=== PATIENT | male | born 1990 | race Caucasian/White ===

== ENCOUNTER 2017-02-14 16:03 | Emergency (ER) | payer OTHER ==
[~2017-02-14] VITALS: Ht 188 cm; Wt 82.0 kg
[2017-02-14 16:07] VITALS: TEMP 36.6; Ht 188 cm; Wt 82.0 kg
[2017-02-14] MEDS ORDERED: TRAZ1TAB52 PO (16:19)
[2017-02-14] MEDS ORDERED: IBUP-1450 PO (16:19)
[2017-02-14] MEDS ORDERED: OXYCODONE/ACETAMINOPHEN 5-325 TAB PO STA (16:25)
--- NOTE | 2017-02-14 16:58 | DIAGNOSTIC IMAGING REPORT ---
LEFT TIBIA AND FIBULA 2 VIEWS CLINICAL HISTORY: Left leg injury. FINDINGS: AP and lateral views of the left tibia and fibula are obtained. No prior studies are available for comparison at the time of dictation. The skeletal structures are well mineralized. No fracture is seen. The knee and ankle joints are grossly maintained. Soft tissue edema is present in the distal calf and around the ankle, greatest laterally. IMPRESSION: 1. No left tibial or fibular fracture is identified. 2. Marked soft tissue edema is present in the distal calf and around the ankle. Electronically signed by: Vito Green M.D. 02/14/2017 4:57 PM Dictated Date/Time: 02/14/2017 4:55 PM
--- NOTE | 2017-02-14 16:59 | DIAGNOSTIC IMAGING REPORT ---
LEFT FOOT 3 VIEWS CLINICAL HISTORY: Inversion injury. FINDINGS: 3 views of the left foot are obtained. No prior studies are available for comparison at the time of dictation. The skeletal structures are well mineralized. No fracture is seen. The joint spaces of the foot are well-maintained. There is an ankle joint effusion, with soft tissue edema present around the ankle and throughout the foot. IMPRESSION: Soft tissue swelling with no radiographic evidence of fracture in the left foot. Electronically signed by: Vito Green M.D. 02/14/2017 4:58 PM Dictated Date/Time: 02/14/2017 4:57 PM
--- NOTE | 2017-02-14 17:04 | EMERGENCY ROOM VISIT NOTE ---
History First contact with patient: 16:16 Chief Complaint: FOOT PAIN Stated Complaint: L FOOT INJURY History of Present Illness The patient is a 26 year old male who presents to the Emergency Room via escort by 2 corrections officers from [facility] with complaints of "left foot injury" . The patient states that yesterday her 1 PM, he went for a rebound, and when he landed, he inverted his left ankle. And it was also stepped on by another player. He notes that he heard and felt pops in the left lateral ankle. He notes pain yesterday, as a 4-5/10. It has steadily increased, and is now an 8/ 10. He had an injection of Toradol yesterday, and ibuprofen. He notes his pain currently is an 8/10. There is minimal numbness in the distal extremity. There is moderate edema. There have been no x-rays must far. Review of Systems A complete 6-point Review of Systems was discussed with the patient, with pertinent positives and negatives listed in the History of Present Illness. All remaining Review of Systems questions can be considered negative unless otherwise specified. Past Medical/Surgical History Appendectomy Family History Diabetes, heart disease, high blood pressure, cancer. Social History Smoking Status: Current Every Day Smoker Social History: Patient admits to tobacco use, and denies alcohol use. Current/Historical Medications Scheduled Trazodone Hcl (Desyrel), 150 MG PO HS Scheduled PRN Ibuprofen (Motrin), 600 MG PO TID PRN for Pain Allergies Uncoded Allergies: VICODIN (Allergy, Unknown, throat swelling, 02/14/17) Physical Exam Vital Signs Date Time Temp Pulse Resp B/P Pulse Ox O2 Delivery O2 Flow Rate FiO2 02/14/17 17:47 73 16 150/43 96 02/14/17 16:07 36.6 76 20 127/71 98 Room Air Physical Exam VITAL SIGNS - Vital signs and nursing notes were reviewed. Afebrile, non- tachycardic, saturating well on room air 98%. GENERAL -26 -year-old male appearing his stated age who is in no acute distress. Communicates well with provider and answers questions appropriately. SKIN - Without rashes. There is bruising to the left lateral ankle. HEAD - NC/AT. EXTREMITIES - No clubbing or peripheral cyanosis. No pretibial edema present. There is bruising noted inferior to the lateral malleolus. There is edema extending from the distal lim, to the toes. Decreased range of motion secondary to pain. He is neurovascularly intact. +5/5 strength noted in UE/LE bilaterally. Medical Decision & Procedures ER Provider Diagnostic Interpretation: LEFT FOOT 3 VIEWS CLINICAL HISTORY: Inversion injury. FINDINGS: 3 views of the left foot are obtained. No prior studies are available for comparison at the time of dictation. The skeletal structures are well mineralized. No fracture is seen. The joint spaces of the foot are well-maintained. There is an ankle joint effusion, with soft tissue edema present around the ankle and throughout the foot. IMPRESSION: Soft tissue swelling with no radiographic evidence of fracture in the left foot. Electronically signed by: Vito Green M.D. 02/14/2017 4:58 PM Dictated Date/Time: 02/14/2017 4:57 PM LEFT ANKLE 3 VIEWS CLINICAL HISTORY: Left ankle pain. FINDINGS: 3 views of the left ankle are correlated with radiographs of the left tibia and fibula performed the same day 02/14/2017. The skeletal structures are well mineralized. No fracture is seen. The ankle mortise is intact. There is a joint effusion, and marked soft tissue edema is present around the ankle. This is greatest laterally. IMPRESSION: Joint effusion and marked soft tissue edema. No fracture is identified. Electronically signed by: Vito Green M.D. 02/14/2017 5:24 PM Dictated Date/Time: 02/14/2017 5:22 PM LEFT TIBIA AND FIBULA 2 VIEWS CLINICAL HISTORY: Left leg injury. FINDINGS: AP and lateral views of the left tibia and fibula are obtained. No prior studies are available for comparison at the time of dictation. The skeletal structures are well mineralized. No fracture is seen. The knee and ankle joints are grossly maintained. Soft tissue edema is present in the distal calf and around the ankle, greatest laterally. IMPRESSION: 1. No left tibial or fibular fracture is identified. 2. Marked soft tissue edema is present in the distal calf and around the ankle. Electronically signed by: Vito Green M.D. 02/14/2017 4:57 PM Dictated Date/Time: 02/14/2017 4:55 PM Medications Administered Medications (Trade) Dose Ordered Sig/Ovi Route Start Time Stop Time Status Last Admin Dose Admin Oxycodone/ Acetaminophen (Percocet 5-325mg Tab) 1 tab NOW STAT PO 02/14/17 16:25 02/14/17 16:27 DC 02/14/17 16:34 1 TAB Medical Decision Patient was seen and evaluated as above. After obtaining a thorough history and physical examination radiographs were obtained of the tip/fib region as well as the foot. No fracture noted. Results as above. Dedicated ankle views were obtained. No acute fracture. He was given Percocet for his pain. Patient does have a large amount of edema and ecchymosis of the lateral ankle. I suspect a large ankle sprain. There also could be an occult fracture. For this reason, he'll be fitted with a posterior short-leg Ortho-Glass, made nonweightbearing is to use crutches. I provided number for orthopedics of which is a follow-up with regarding his injury. He was educated upon worrisome symptoms which to return, had questions prior to discharge, and was discharged home in good condition. In the evaluation and treatment of this patient, the following differential diagnoses were considered: Ankle Fracture, Ankle Sprain, Distal Fibula Fracture , Distal Tibia Fracture, Foot Fracture, Maisonneuve Fracture. Impression Primary Impression: Left ankle injury Departure Information Dispostion Home / Self-Care Condition GOOD Referrals Earl SKY (PCP) Joseph Galindo D.O. Patient Instructions My [facility] Additional Instructions You have been treated in the Emergency Department for a left Ankle injury. You have received pain medicine in the emergency department which impairs your ability to operate a vehicle. It is illegal for you to drive after receiving these medicines. RECOMMENDATIONS: For pain control, you can use the following [id number] medicines (if >12 yo): - Regular strength (325mg/tab) Tylenol (acetaminophen) 2 tabs every 4-6 hours as needed. Do not exceed 12 tablets in a 24 hour period. Avoid taking more than 3 grams (3000 mg) of Tylenol per day. This includes any other sources of acetaminophen you may take on a regular basis. - Regular strength (200 mg/tab) Advil (ibuprofen) 1-2 tabs every 4-6 hours as needed. Do not exceed a dose of 3200 mg per day. If this is a recent injury (<24 hrs), ice can be applied to the area of pain for the first 3 days to help decrease pain and inflammation. You have been provided the number for an Orthopaedic Surgeon. You should call this number as soon as possible to establish a follow-up visit from today's Emergency Department visit. (Dr. Galindo) Keep the ankle brace/splint in place until cleared by Orthopedics. Use the crutches you have been provided to keep ALL weight off of the ankle until weight bearing is tolerable. Return to the Emergency Department if your current symptoms worsen despite treatment course outlined above, or if you develop any of the following symptoms : intractable pain despite aforementioned treatment course or new onset of numbness or tingling of the foot. Please return to emergency department with any new/concerning symptoms. LEFT TIBIA AND FIBULA 2 VIEWS CLINICAL HISTORY: Left leg injury. FINDINGS: AP and lateral views of the left tibia and fibula are obtained. No prior studies are available for comparison at the time of dictation. The skeletal structures are well mineralized. No fracture is seen. The knee and ankle joints are grossly maintained. Soft tissue edema is present in the distal calf and around the ankle, greatest laterally. IMPRESSION: 1. No left tibial or fibular fracture is identified. 2. Marked soft tissue edema is present in the distal calf and around the ankle. Electronically signed by: Vito Green M.D. 02/14/2017 4:57 PM Dictated Date/Time: 02/14/2017 4:55 PM IMAGING: LEFT ANKLE 3 VIEWS CLINICAL HISTORY: Left ankle pain. FINDINGS: 3 views of the left ankle are correlated with radiographs of the left tibia and fibula performed the same day 02/14/2017. The skeletal structures are well mineralized. No fracture is seen. The ankle mortise is intact. There is a joint effusion, and marked soft tissue edema is present around the ankle. This is greatest laterally. IMPRESSION: Joint effusion and marked soft tissue edema. No fracture is identified. Electronically signed by: Vito Green M.D. 02/14/2017 5:24 PM Dictated Date/Time: 02/14/2017 5:22 PM LEFT FOOT 3 VIEWS CLINICAL HISTORY: Inversion injury. FINDINGS: 3 views of the left foot are obtained. No prior studies are available for comparison at the time of dictation. The skeletal structures are well mineralized. No fracture is seen. The joint spaces of the foot are well-maintained. There is an ankle joint effusion, with soft tissue edema present around the ankle and throughout the foot.
--- NOTE | 2017-02-14 17:25 | DIAGNOSTIC IMAGING REPORT ---
LEFT ANKLE 3 VIEWS CLINICAL HISTORY: Left ankle pain. FINDINGS: 3 views of the left ankle are correlated with radiographs of the left tibia and fibula performed the same day 02/14/2017. The skeletal structures are well mineralized. No fracture is seen. The ankle mortise is intact. There is a joint effusion, and marked soft tissue edema is present around the ankle. This is greatest laterally. IMPRESSION: Joint effusion and marked soft tissue edema. No fracture is identified. Electronically signed by: Vito Green M.D. 02/14/2017 5:24 PM Dictated Date/Time: 02/14/2017 5:22 PM
[2017-02-14 17:47] VITALS: BP 150/43; PULSE 73; O2SAT 96
== END 2017-02-14 17:48 | disposition home or self-care (01) ==
LOC: C.EDB 16:06 → C.EDD 17:48
DX: S99.912A Unspecified injury of left ankle, initial encounter (principal); W50.0XXA Accidental hit or strike by another person, initial encounter; F17.200 Nicotine dependence, unspecified, uncomplicated; Z98.890 Other specified postprocedural states; Z88.8 Allergy status to other drugs, medicaments and biological substances; Z83.3 Family history of diabetes mellitus; Z82.49 Family history of ischemic heart disease and other diseases of the circulatory system; Z80.9 Family history of malignant neoplasm, unspecified